=== PATIENT | male | born 1950 | race Caucasian/White ===

== ENCOUNTER 2017-10-14 11:16 | Day surgery (SDC) | payer MEDICARE, OTHER ==
[~2017-10-14] VITALS: Ht 188 cm; Wt 120.2 kg
[2017-10-14] MEDS ORDERED: IOHEXOL 350 MG/ML 100 ML BTL (for Cath Lab) OTHER ONE (11:17)
[2017-10-14 11:57] VITALS: BP 142/78; PULSE 64; RESP 18; TEMP 98.1; O2SAT 96
[2017-10-14] MEDS ORDERED: SODIUM BICARBONATE 100 MEQ in D5W 1000 ML IV SCH (12:00)
[2017-10-14] MEDS ORDERED: SODIUM CHLORIDE 0.9% FLUSH 10 ML FLUSH IV FLUSH PRN ×2 (12:00)
[2017-10-14] MEDS ORDERED: MULT-65 PO (12:03)
[2017-10-14] MEDS ORDERED: FINA5TAB2 PO (12:03)
[2017-10-14] MEDS ORDERED: LISI10TA3 PO (12:03)
[2017-10-14] MEDS ORDERED: PLAV75TA29 PO (12:03)
[2017-10-14] MEDS ORDERED: HYDR25TA5 PO (12:03)
[2017-10-14] MEDS ORDERED: CIAL5TAB PO (12:03)
[2017-10-14] MEDS ORDERED: ROSU5 PO (12:03)
[2017-10-14] MEDS ORDERED: ECASA81 PO (12:03)
[2017-10-14] MEDS ORDERED: TAMS5CAP PO (12:03)
[2017-10-14 12:10] LABS: AUTOMATED NEUTROPHIL # 4.8 TH/MM3 (1.8-7.7); BASOPHIL % 0.5 % (0.0-2.0); EOSINOPHIL # 0.3 TH/MM3 (0-0.4); HEMATOCRIT 40.9 % (39.0-51.0); LYMPH % 25.1 % (9.0-44.0); LYMPHOCYTE # 1.9 TH/MM3 (1.0-4.8); MEAN CELL VOLUME 87.9 FL (80.0-100.0); MEAN CORPUSCULAR HEMOGLOBIN 31.3 PG (27.0-34.0); MEAN CORPUSCULAR HGB CONC 35.7 % (32.0-36.0); MONO % 8.1 % (0.0-8.0); NEUT % 62.3 % (16.0-70.0); PLATELET COUNT 144 TH/MM3 (150-450); RED BLOOD COUNT 4.66 MIL/MM3 (4.50-5.90); RED CELL DISTRIBUTION WIDTH 13.9 % (11.6-17.2); WHITE BLOOD COUNT 7.7 TH/MM3 (4.0-11.0)
[2017-10-14 12:13] LABS: HEMO FLAGS AUTO DIFF
[2017-10-14 12:23] LABS: POTASSIUM 3.9 MEQ/L (3.5-5.1)
[2017-10-14 12:39] LABS: SCAN/DIFF AUTO DIFF CONFIRMED
--- NOTE | 2017-10-14 14:10 | PD.VS.PN ---
Pre-operative Note Pre-operative diagnosis: L LE claudication PAD Planned procedure: Aortogram w/ L LE angiogram possible endovascular intervention Interval History: Pt has been feeling well, no F/C or other changes in health since I saw him. To OR Labs: Laboratory Results Test 10/14/17 11:45 Anion Gap 6 MEQ/L (5-15) Blood Urea Nitrogen 20 MG/DL (7-18) Creatinine 1.09 MG/DL (0.60-1.30) Random Glucose 125 MG/DL (74-106) Calcium Level 9.4 MG/DL (8.5-10.1) Sodium Level 140 MEQ/L (136-145) Potassium Level 3.9 MEQ/L (3.5-5.1) Chloride Level 105 MEQ/L (98-107) Carbon Dioxide Level 29.0 MEQ/L (21.0-32.0) Hematocrit 40.9 % (39.0-51.0) Hemoglobin 14.6 GM/DL (13.0-17.0) Mean Corpuscular Hemoglobin 31.3 PG (27.0-34.0) Mean Corpuscular Hemoglobin Concent 35.7 % (32.0-36.0) Mean Corpuscular Volume 87.9 FL (80.0-100.0) Mean Platelet Volume 8.0 FL (7.0-11.0) Platelet Count 144 TH/MM3 (150-450) Red Blood Count 4.66 MIL/MM3 (4.50-5.90) Red Cell Distribution Width 13.9 % (11.6-17.2) White Blood Count 7.7 TH/MM3 (4.0-11.0) Blood: none needed Imaging: will make in OR Orders: NPO Post-operative destination: DOCU Operative site marked: Yes Consent: Informed consent has been obtained from Jairo Santos. I have explained the procedure in detail and discussed the risks, benefits, and potential complications. All questions have been answered. Augustine Grove MD Oct 14, 2017 14:10
[2017-10-14] MEDS ORDERED: HEPARIN-NS/PF INJ 1,000 ML ONE (14:20)
[2017-10-14] MEDS ORDERED: MIDAZOLAM HCL 5 MG/5 ML VIAL ONE (14:22)
[2017-10-14] MEDS ORDERED: MORPHINE SULFATE 4 MG/ML INJ IV PUSH PRN (14:45)
--- NOTE | 2017-10-14 14:47 | HHI.PR ---
cc: Augustine Grove MD Immediate Post Op Note Procedure Date: Oct 14, 2017 Pre Op Diagnosis: L LE claudication, prior distal bypass Post Op Diagnosis: L LE claudication, prior distal bypass Surgeon: Augustine Grove Sheep And Wheat Farmer(s): none Procedure: Aortogram w/ L LE angiogram Findings: SFA and popliteal occlusion SFA stents occluded prior bypass occluded Additional Information: PT/peroneal runoff Complications: none Specimen(s) removed: none Estimated blood loss: 10mL Anesthesia: MAC Drains: None Patient to: Other (DOCU) Patient Condition: Good Date/Time of Procedure: SEE SURGICAL CARE RECORD Augustine Grove MD Oct 14, 2017 14:47
--- NOTE | 2017-10-14 14:56 | CATHPROC ---
[employer] HIS Report Study Information Study Number Admission Scheduled Start Study Start [id number] Oct 14 2017 11:16AM 10/14/2017 Oct 14 2017 2:03PM [place] Service Cath Endovascular Study Admit Source Facility Department Other [facility] - Draw Hand Physician and Clinical Staff Initial MD Grove, Augustine Young RN, Carlos Recorder Vincenzo Sethi,RT(R) ScrRefugio Alan,RT(R) Procedures Performed Procedure Location (Site) Vessel Name Abdominal Angiogram Abd Aorta (A3) Aorta Wire insertion Fem Art (right) Femoral Art Equipment Time Senior Sales Manager Description Size Mfg Part Number Used/Scraped [id number] 14:24 ANGIO-DYNAMICS OMNI FLUSH 65CM CATHETER FR 4 Used *[id number] 14:34 ANGIO-DYNAMICS OMNI FLUSH 65CM CATHETER FR 4 Used *[id number] INTRODUCER SET, 14:24 [employer] FR 5 [id number] *[id number] Used MICROPUNCTURE, STIFFENED [id number] 14:24 Trudev INDUSTRIES PACK, CCL CUSTOM * Used *[id number] 14:24 [email or web address] MEDICAL PRESSURE TUBING 48" 48" [id number] Used [id number] 14:24 NAMIC TUBING, HIGH PRESSURE 20" 20" Used *[id number] 14:24 NYCOMED OMNIPAQUE, 300 MG, 150ML 150ML [id number] Used 14:24 NYCOMED OMNIPAQUE, 300 MG, 50ML 50ML [id number] Used [id number] 14:24 REECE MEDICAL BLANKET,WARM AIR CCL * Used *[id number] 14:24 TERUMO MEDICAL SHEATH, FR4 TERUMO (10CM) FR 4 Used *[id number] WIRE, ANGLED GLIDE .035 [id number] 14:24 TERUMO MEDICAL/SUSIE 260CM Used 260CM *[id number] History: Allergies Allergy Reaction No Known Allergies Labs Hgb (g/dl) Hct (%) RBC (MIL/MM3) WBC (l/cumm) Platelets (thousands) 11.60-17.00 35.00-51.00 4.00-5.90 4.00-11.00 150.00-450.00 14.6 40.9 4.6 7.7 144 Glucose (mg/dl) BUN (mg/dl) Creatinine (mg/dl) BUN:Creatinine (1:x) 74.00-106.00 7.00-18.00 0.50-1.30 10.00-20.00 125 20 1.0 20 Na (meq/l) K (meq/l) Cl (meq/l) CO2 (mmol/L) 136.00-145.00 3.50-5.10 98.00-107.00 21.00-32.00 140 3.9 105 29 CPK-MB (ng/ML) 0.50-3.60 Not Drawn Medication Medication Total Dose (Bolus/Oral) Medication Total Dosage/Unit 1% XYLOCAINE 20 mL FENTANYL 50 mcg VERSED 2 mg Medications (Bolus/Oral) Medication Time Given Dosage/Unit Administered By Reason FENTANYL 10/14/2017 2:27:12 PM 50 mcg Carlos Young RN Patient arrived on 50 mcg FENTANYL given by Carlos Young RN via Peripheral IV. Ordered by [place] Grove. VERSED 10/14/2017 2:28:01 PM 2 mg Carlos Young RN Patient arrived on 2 mg VERSED given by Carlos Young RN via Peripheral IV. Ordered by Augustine Grove. 1% XYLOCAINE 10/14/2017 2:30:26 PM 20 mL Augustine Grove Patient arrived on 20 mL 1% XYLOCAINE given by Augustine Grove in Right Groin via Subcutaneous. Ordere d by Augustine Grove. Medication (Drip) Medication Time Given Dosage/Unit Concentration/Unit Diluent (ml) Solution IV Solutions 10/14/2017 2:19:31 PM 0 mL (IV) 500 NaCl .9 Patient arrived on IV Solutions given by Augustine Grove in Left Antecubital via Peripheral IV. Pump/D rip Flow = 20 ml/hr using NaCl .9. Ordered by Augustine Grove. Final Case Assessment Cardiovascular HR Rhythm NIBP Chest Pain 60 sr 110/69 0 Edema Present Skin color Skin None Normal Warm Dry Circulatory - Right Pulses Femoral 2 Scale (0,1,2,3,4,d) Circulatory - Left Pulses Femoral 2 Scale (0,1,2,3,4,d) Neurological State Oriented to time-place- Alert Moves all extremities person Respiration - General Respiration Rate SpO2 (%) O2 (lpm) (B/min) 18 98 0 Chronological Log Time Study Chronological Log 14:10:57 Patient arrived via Bed. 14:10:58 Patient Name, D.O.B, / Armband Verified By R.N. 14:10:59 Consent signed by the physician and the patient and verified by the Draw Hand staff. 14:11:00 Pre-op and post- op instructions given; patient acknowledges understanding of instructions. 14:11:02 Verbal Stimulation=2 Physical Stimulation=2 Airway=2 Respiration=2 TOTAL=8. (0=absent, 1=li mited, 2=present) 14:11:13 Presedation assessment performed by Draw Hand RN. 14:11:16 Patient has been NPO for More than 6Hrs. 14:11:21 Skin Breakdown-none present per patient. 14:18:16 A # 20 IV was noted in the Antecubital (left). Grade = 0 14:19:14 Reference ECG taken Vitals capture started with the following parameters, Patient=Adult, Interval=5 min, Initial Pr ppskoo=601 mmHg, 14:19:16 Deflation Rate=5 mmHg, Cuff placed on Right Arm Patient arrived on IV Solutions given by Augustine Grove in Left Antecubital via Peripheral IV. Pump/Drip Flow = 20 ml/hr 14:19:31 using NaCl .9. Ordered by Augustine Grove. 14:19:49 History and physical on the chart or being dictated. 14:20:27 HR=59 bpm, WKRQ=727/82 mmhg, SpO2=99.0 %, Resp=14 B/min, Mar=2 14:22:42 Bilateral groins prepped with 2% chlorhexidine, and draped after a 3 minute waiting time. 14:25:31 HR=56 bpm, NIRD=374/72 mmhg, VtQ4=571.0 %, Resp=15 B/min, Mar=2 Time Out. Correct patient, correct procedure, correct physician, power injector loaded with con trast with surgical team 14:26:13 present. Time Out Concurred by MD and individual staff in procedure. Loaded by Carlos Young rn. verified by Refugio Arevalo. 14:27:12 Patient arrived on 50 mcg FENTANYL given by Carlos Young RN via Peripheral IV. Ordered by Augustine Moscoso. 14:27:54 Case Start 14:27:56 Verbal Stimulation=2 Physical Stimulation=2 Airway=2 Respiration=2 TOTAL=8. (0=absent, 1=li mited, 2=present) 14:28:01 Patient arrived on 2 mg VERSED given by Carlos Young RN via Peripheral IV. Ordered by Augustine Nunez. 14:29:57 HR=64 bpm, IJSC=790/64 mmhg, SpO2=98.0 %, Resp=12 B/min, Mar=2 Patient arrived on 20 mL 1% XYLOCAINE given by Augustine Grove in Right Groin via Subcutaneous. Ordered by [place], 14:30:26 Augustine. 14:32:38 Access site was Right Femoral Artery. A INTRODUCER SET, MICROPUNCTURE, STIFFENED FR 5 was advanced into the Fem Art (right) using the 14:32:43 Percutaneous technique. A SHEATH, FR4 TERUMO (10CM) FR 4 was exchanged in the Fem Art (right). This was necessary in or ilsa to 14:33:14 accomodate a larger catheter. A OMNI FLUSH 65CM CATHETER FR 4 was advanced over a wire. OMNIPAQUE, 300 MG, 50ML 50ML was used for 14:33:44 injections. 14:34:05 Through a OMNI FLUSH 65CM CATHETER FR 4, The Abdominal Aorta was injected with 10 cc's of c ontrast. 14:34:56 HR=60 bpm, GONE=028/64 mmhg, SpO2=97.0 %, Resp=12 B/min, Mar=2 14:36:22 Through a OMNI FLUSH 65CM CATHETER FR 4, The Abdominal Aorta was injected with 10 cc's of c ontrast. 14:37:10 A WIRE, ANGLED GLIDE .035 260CM 260CM was inserted via Fem Art (right). 14:37:57 Wire removed 14:38:06 Through a OMNI FLUSH 65CM CATHETER FR 4, The Femoral Run-off was injected with 4 cc's per s econd. 14:39:22 Through a OMNI FLUSH 65CM CATHETER FR 4, The Femoral Run-off was injected with 4 cc's per s econd. 14:39:57 HR=61 bpm, HNZD=604/58 mmhg, SpO2=97.0 %, Resp=12 B/min, Mar=2 14:40:36 Through a OMNI FLUSH 65CM CATHETER FR 4, The Femoral Run-off was injected with 4 cc's per s econd. 14:41:00 Through a OMNI FLUSH 65CM CATHETER FR 4, The Femoral Run-off was injected with 4 cc's per s econd. 14:42:27 Catheter was removed 14:44:56 HR=58 bpm, HDXA=168/69 mmhg, SpO2=98.0 %, Resp=12 B/min, Mar=2 Assessment: Final Case, HR=60 BPM, Rhythm=sr, UDDY=429/69 mmhg, Chest Pain=0, Edema=None, Color =Normal, Skin = Warm, Dry Right Pulses: Femoral=2 14:45:15 Left Pulses: Femoral=2 Neurological: State=Alert, Ox3, CARDOZA Respiration: Resp=18 B/min, SpO2=98 %, O2=0 lpm 14:45:45 Catheter(s) removed without difficulty 14:45:48 Sheath(s) left in place, will be removed in Holding Area 14:45:50 Case End 14:45:53 Sterile dressing applied to site 14:45:54 No case complications noted. 14:45:56 Cine recording checked. 14:45:58 Bedside Report will be given. 14:46:03 Contrast Scanned 14:49:54 Vitals capture stopped. 14:50:26 Patient moved to carrier clinic End Study - Contrast Media Used In Study Contrast Total Opened (mL) Total Used (mL) Total Wasted (mL) Omnipaque 70 70 0 End Study - Maximum Contrast Load Max Contrast Load (mL) 600.9 End Study - Radiation Exposure Fluoro Time (minutes) 2.3 End Study - Patient Disposition Complications Transferred To Telemetry Bed
--- NOTE | 2017-10-15 05:53 | MP ---
cc: [facility] DATE OF SURGERY 10/14/2017 PREOPERATIVE DIAGNOSIS Left lower exam claudication, peripheral arterial occlusive disease, failed distal bypass. POSTOPERATIVE DIAGNOSIS Left lower exam claudication, peripheral arterial occlusive disease, failed distal bypass. PROCEDURE Aortogram with left lower extremity angiogram. ATTENDING SURGEON [place] MD ANESTHESIA Local with sedation. INDICATIONS Mr. Santos is a 67-year-old gentleman with previous left lower extremity bypass and endovascular intervention all done elsewhere. He has short distance claudication and was taken to the operating room for angiographic evaluation and potential treatment. There is no prior catheter-based imaging available for my review. DESCRIPTION OF PROCEDURE Informed consent was obtained from the patient. He was taken to the operating room and placed supine on the operating room table. An appropriate time-out was taken to ensure the patient's identity, the operative site and the planned procedure. The administration of antibiotics was not necessary as this is a clean procedure without the planned implantation of any foreign object. Everyone in the room agreed with the time-out and we proceeded. His bilateral groins were prepped and draped and the right groin was anesthetized with 1% lidocaine. A 21-gauge micropuncture needle was used to access the right common femoral artery. This was exchanged using Seldinger technique for a micropuncture sheath through which a 0.035 Glidewire was introduced. The micropuncture sheath was exchanged for a 4-Occitan sheath. A DCF catheter was placed over the wire into the sheath and aortogram and pelvic arteriograms obtained. The Glidewire was re-advanced down to the left common femoral artery and the VCF catheter was advanced over this and the left lower extremity arteriogram was obtained. The wire, catheter and sheath were removed and pressure used to obtain hemostasis. There were no complications. I was present and scrubbed and performed the entire procedure. INTERPRETATION OF IMAGES The patient has patent infrarenal aorta, common iliac arteries and external iliac arteries bilaterally. None of these have any hemodynamically significant stenoses. The left common femoral artery is patent. The profunda is patent. The [place] SFA has about a 1-cm origin and then it occludes at the level of the previously placed stents. The previous bypass is occluded. The entire SFA and popliteal artery is occluded and the below-knee popliteal artery reconstitutes the paolo-geniculate profunda-based collaterals. There is two-vessel runoff to the foot. MD BEN Roberson/KAY /6:22 PM /5:36 AM
== END 2017-10-14 19:05 | disposition home or self-care (01) ==
LOC: HCAT 11:16 → HDIC 11:17 → HCAT 19:05
PROVIDERS: ATTEND Surgery
DX: I70.212 Atherosclerosis of native arteries of extremities with intermittent claudication, left leg (principal); I77.1 Stricture of artery; I10 Essential (primary) hypertension
CPT/HCPCS: 36246; 75710; 80048; 85025; 99152; 99153; C1769; C1887; C1893; J1644; J2250; J3010; Q9967

== ENCOUNTER 2018-10-30 06:47 | Observation (INO) ==
[2018-10-30 07:38] LABS: Baso % (Auto) 0.6 % (0.0-2.0); Eos # (Auto) 0.2 th/mm3 (0.0-0.4); Eos % (Auto) 3.5 % (0.0-4.0); Hematocrit 38.2 % (39.0-51.0); Hemoglobin 13.2 gm/dL (13.0-17.0); Lymph # (Auto) 1.4 th/mm3 (1.0-4.8); Mean Corpuscular HGB Conc 34.5 % (32.0-36.0); Mean Corpuscular Hemoglobin 30.8 pg (27.0-34.0); Mean Corpuscular Volume 89.2 fL (80.0-100.0); Mean Platelet Volume 8.1 fL (7.0-11.0); Mono # (Auto) 0.5 th/mm3 (0.0-0.9); Neut # (Auto) 3.6 th/mm3 (1.8-7.7); Neut % (Auto) 62.9 % (16.0-70.0); Platelet Count 134 th/mm3 (150-450); Red Blood Count 4.29 mil/mm3 (4.50-5.90); Red Cell Distribution Width 14.7 % (11.6-17.2); White Blood Count 5.7 th/mm3 (4.0-11.0)
[2018-10-30 07:46] LABS: Activated Partial Thrombo Time 33.6 sec (23.4-31.7); INR 1.2 Ratio
--- NOTE | 2018-10-30 07:52 | ED ---
HPI General Chief complaint: GI Bleed Stated complaint: Medical Time Seen by Provider: 10/30/18 07:02 History of Present Illness HPI Narrative: This is a 68-year-old gentleman with history of peripheral vascular disease, hypertension, dyslipidemia, presents today with complaints of rectal bleeding since yesterday. Patient states he had a bloody bowel movement yesterday afternoon. He states that at that time it was bright red blood. He states that later that evening, he felt the urge to have a bowel movement had another bowel movement of just pure blood. He had another episode this morning where he noted blood in his shorts. He denies any previous history of rectal bleeding. The patient is on Xarelto for his peripheral vascular disease. He also takes a baby aspirin. There is no reported dizziness. There is no reported weakness. There is no reported palpitations or chest pain. No shortness of breath. No other complaints at the time of my examination. Related Data Home Medications Medication Instructions Recorded Confirmed aspirin 81 mg PO DAILY 10/30/18 10/30/18 finasteride 5 mg PO DAILY 10/30/18 10/30/18 hydrochlorothiazide 25 mg PO DAILY 10/30/18 10/30/18 lisinopril 5 mg PO DAILY 10/30/18 10/30/18 rivaroxaban [Xarelto] 20 mg PO QPM 10/30/18 10/30/18 rosuvastatin 5 mg PO DAILY 10/30/18 10/30/18 tadalafil [Cialis] 5 mg PO DAILY 10/30/18 10/30/18 tamsulosin 0.4 mg PO DAILY 10/30/18 10/30/18 Allergies Allergy/AdvReac Type Severity Reaction Status Date / Time No Known Allergies Allergy Verified 10/30/18 06:50 Review of Systems ROS: all other systems reviewed are negative Constitutional Reports system reviewed and no additional complaints, except as docu Eyes Reports system reviewed and no additional complaints, except as docu ENT Denies bleeding gums and Denies dizziness Cardiovascular Denies chest pain and Denies dyspnea Respiratory Denies dyspnea and Denies dyspnea on exertion Gastrointestinal Denies abdominal pain, Reports hematochezia, Denies coffee ground emesis, Reports excessive flatus, Denies diarrhea, Denies nausea and Denies vomiting Musculoskeletal Reports system reviewed and no additional complaints, except as docu Neurologic Reports system reviewed and no additional complaints, except as docu [facility] Medical History Medical History DVT (deep venous thrombosis) (Acute) Femoral popliteal artery thrombus (Acute) Hypertension (Acute) Sleep apnea with use of continuous positive airway pressure (CPAP) (Acute) Surgical History Surgical History H/O hernia repair (Acute) Hx of CABG (Acute) Social History Social History Substance History: No History of Abuse Second Hand Smoke Exposure: No Smoking Status: Former smoker Tobacco Type: Cigarettes How Often Do You Have a Drink Containing Alcohol: Never Recent Travel in [facility] within the Last 8 Weeks: No Recent Out of Country Travel within the Last 8 Weeks: No Immunization History Tetanus Immunization: >5 Years Exam Narrative Exam Narrative: GENERAL: Well developed well-nourished male in no acute distress SKIN: Focused skin assessment warm/dry. HEAD: Atraumatic. Normocephalic. EYES: No pale conjunctiva. No scleral icterus. No injection or drainage. ENT: Mucous membranes pink and moist. NECK: Trachea midline. No JVD. CARDIOVASCULAR: Regular rate and rhythm. No murmur appreciated. RESPIRATORY: No accessory muscle use. Clear to auscultation. Breath sounds equal bilaterally. GASTROINTESTINAL: Abdomen soft, non-tender, nondistended. RECTAL EXAM: No masses or tenderness. Small external hemorrhoid at the 9 o' clock position. No bleeding from the hemorrhoid noted. On digital exam, there was scant pink blood in his vault. It did test positive. MUSCULOSKELETAL: No obvious deformities. No clubbing. No cyanosis. No edema. NEUROLOGICAL: Awake and alert. No obvious cranial nerve deficits. Motor grossly within normal limits. Normal speech. Procedures Hemaprompt Stool Procedural Steps Taken: specimen placed in appropriate test area and controls appropriately positive and negative Hemaprompt Stool Result: positive Course Initial Documented Vital Signs Temperature 98.4 F 10/30/18 06:52 Pulse Rate 72 10/30/18 06:52 Respiratory Rate 16 10/30/18 06:52 Blood Pressure 143/66 H 10/30/18 06:52 Pulse Oximetry 98 10/30/18 06:52 Last Documented Vital Signs Temperature 98.4 F 10/30/18 06:52 Pulse Rate 52 L 10/30/18 09:44 Respiratory Rate 20 10/30/18 09:44 Blood Pressure 126/57 L 10/30/18 09:44 Pulse Oximetry 98 10/30/18 09:44 Medical Decision Making MDM Narrative Medical decision making narrative: 68-year-old gentleman with history of peripheral vascular disease, hypertension, dyslipidemia, who is anticoagulated on Xarelto, presents today with 2-day history of GI bleeding. The patient has an external hemorrhoid at the 9 o'clock position. There is no active bleeding noted. On digital rectal examination he had pink liquid in his rectal vault the tested positive for heme. Given this and his anticoagulation, the patient will be admitted under observation with a GI consult. He was n.p.o. other than coffee this morning. Last ate last night. Case was discussed with Dr. Mcdowell , [facility]ist. Medical Screen Exam Complete: Yes Emergency Medical Condition: Yes Differential Diagnosis Differential Diagnosis: Lower GI bleed versus internal hemorrhoid bleed versus external hemorrhoid bleed Lab Data Result diagrams: 10/30/18 07:20 10/30/18 07:20 Lab Results 10/30/18 10/30/18 10/30/18 Range/Units 07:20 07:20 07:20 WBC 5.7 (4.0-11.0) th/mm3 RBC 4.29 L (4.50-5.90) mil/mm3 Hgb 13.2 (13.0-17.0) gm/dL Hct 38.2 L (39.0-51.0) % MCV 89.2 (80.0-100.0) fL MCH 30.8 (27.0-34.0) pg MCHC 34.5 (32.0-36.0) % RDW 14.7 (11.6-17.2) % Plt Count 134 L (150-450) th/mm3 MPV 8.1 (7.0-11.0) fL Neut % (Auto) 62.9 (16.0-70.0) % Lymph % (Auto) 24.0 (9.0-44.0) % [place] % (Auto) 9.0 H (0.0-8.0) % Eos % (Auto) 3.5 (0.0-4.0) % Baso % (Auto) 0.6 (0.0-2.0) % Neut # (Auto) 3.6 (1.8-7.7) th/mm3 Lymph # (Auto) 1.4 (1.0-4.8) th/mm3 [place] # (Auto) 0.5 (0.0-0.9) th/mm3 Eos # (Auto) 0.2 (0.0-0.4) th/mm3 Baso # (Auto) 0.0 (0.0-0.2) th/mm3 WBC Differential . Differential Comment Auto diff final PT 12.0 H (9.8-11.6) sec INR 1.2 Ratio APTT 33.6 H (23.4-31.7) sec Sodium 141 (136-145) meq/L Potassium 4.0 (3.5-5.1) meq/L Chloride 108 H (98-107) meq/L Carbon Dioxide 27.3 (21.0-32.0) meq/L Anion Gap 6 (5-15) meq/L BUN 17 (7-18) mg/dL Creatinine 1.11 (0.60-1.30) mg/dL Estimated GFR 66 L (>89) mL/min Random Glucose 147 H (74-106) mg/dL Calcium 8.7 (8.5-10.1) mg/dL Total Bilirubin 0.4 (0.2-1.0) mg/dL AST 23 (15-37) U/L ALT 34 (12-78) U/L Alkaline Phosphatase 50 (45-117) U/L Total Protein 7.3 (6.4-8.2) g/dL Albumin 4.0 (3.4-5.0) g/dL Blood Type Blood Type Recheck Antibody Screen 10/30/18 Range/Units 07:50 WBC (4.0-11.0) th/mm3 RBC (4.50-5.90) mil/mm3 Hgb (13.0-17.0) gm/dL Hct (39.0-51.0) % MCV (80.0-100.0) fL MCH (27.0-34.0) pg MCHC (32.0-36.0) % RDW (11.6-17.2) % Plt Count (150-450) th/mm3 MPV (7.0-11.0) fL Neut % (Auto) (16.0-70.0) % Lymph % (Auto) (9.0-44.0) % [place] % (Auto) (0.0-8.0) % Eos % (Auto) (0.0-4.0) % Baso % (Auto) (0.0-2.0) % Neut # (Auto) (1.8-7.7) th/mm3 Lymph # (Auto) (1.0-4.8) th/mm3 [place] # (Auto) (0.0-0.9) th/mm3 Eos # (Auto) (0.0-0.4) th/mm3 Baso # (Auto) (0.0-0.2) th/mm3 WBC Differential Differential Comment PT (9.8-11.6) sec INR Ratio APTT (23.4-31.7) sec Sodium (136-145) meq/L Potassium (3.5-5.1) meq/L Chloride (98-107) meq/L Carbon Dioxide (21.0-32.0) meq/L Anion Gap (5-15) meq/L BUN (7-18) mg/dL Creatinine (0.60-1.30) mg/dL Estimated GFR (>89) mL/min Random Glucose (74-106) mg/dL Calcium (8.5-10.1) mg/dL Total Bilirubin (0.2-1.0) mg/dL AST (15-37) U/L ALT (12-78) U/L Alkaline Phosphatase (45-117) U/L Total Protein (6.4-8.2) g/dL Albumin (3.4-5.0) g/dL Blood Type O Positive Blood Type Recheck Required Antibody Screen Negative Discharge Plan Discharge Disposition Patient Disposition: ED Admit(ED Internal Use Only) Discharge Order Discharge Orders: ED Use Only Admit Order (Routine); Ordered 10/30/18 Ordered By: Mannie Carrasquillo Discharge Details Diagnosis: Lower gastrointestinal hemorrhage, Anticoagulated Physicians Team ED Provider: Mannie Carrasquillo Primary Care Provider: Vincenzo Ridley Attending Provider: Danyelle Mcdowell Other Providers: Shakeel Pablo V Discharge Interventions Interventions: Vital Signs Last Done: 10/30/18 06:52 Status ED Status: Admitted Observation Patient
[2018-10-30 07:53] LABS: Alanine Aminotransferase 34 U/L (12-78); Anion Gap 6 meq/L (5-15); Aspartate Aminotransferase 23 U/L (15-37); Blood Urea Nitrogen 17 mg/dL (7-18); Calcium 8.7 mg/dL (8.5-10.1); Carbon Dioxide 27.3 meq/L (21.0-32.0); Chloride 108 meq/L (98-107); Glomerular Filtration Rate 66 mL/min (>89); Glucose,Random 147 mg/dL (74-106); Sodium 141 meq/L (136-145)
[2018-10-30 07:57] LABS: Alkaline Phosphatase 50 U/L (45-117); Total Protein 7.3 g/dL (6.4-8.2)
--- NOTE | 2018-10-30 09:22 | P.HP ---
History of Present Illness Service: [facility] Primary Care Physician: Vincenzo Ridley MD Chief Complaint: Rectal bleeding History of Present Illness: Patient is a very pleasant 68-year-old male with known history of peripheral vascular disease, hypertension, erectile dysfunction, hyperlipidemia, benign prostatic hypertrophy, history of blood clots-but patient and not sure if it is arterial clots or deep vein thrombosis. Denies any history of CAD, CVA who up until Saturday was on Plavix plus Xarelto. On follow-up with Dr. Grove Saturday was told to discontinue Plavix and added aspirin. He is also followed by Dr. Tejada- cardroom drawing runner-last seen 6 months ago -around June who was the one who placed him on Xarelto-for new onset atrial flutter. Patient came to the emergency room because of rectal bleeding that started 2 days prior to admission. Bright red blood. Patient had history of external hemorrhoids. Patient states that a week prior to admission had one episode of bright red blood per rectum. Assumed it was from hemorrhoids. Painless no abdominal pain. Yesterday had another episode of bloody stools. This a.m. another episode of bright red blood per rectum and patient came to the emergency room and admitted for further evaluation. Per patient usual bowel movement is daily -mild constipation but lately not as bad.. Had a screening colonoscopy done years ago which was reportedly normal. Denies any weight loss no abdominal pain. Denies any reflux symptoms. Review of Systems No fever no chest pain no shortness of breath No reflux symptoms No leg swelling No bleeding tendencies prior to these episodes of hematochezia No leg swelling. [facility] - History History Provided By: Patient - Medical History Medical History: Medical History (Last Updated 10/30/18 @ 08:20 by Linda Christina RN) DVT (deep venous thrombosis) Femoral popliteal artery thrombus Hypertension Sleep apnea with use of continuous positive airway pressure (CPAP) - Surgical History Surgical History: Surgical History (Last Reviewed 10/30/18 @ 07:35 by Linda Christina RN) H/O hernia repair Hx of CABG - Tobacco History Second Hand Smoke Exposure: No Smoking Status: Former smoker Tobacco Type: Cigarettes - Alcohol History How Often Do You Have a Drink Containing Alcohol: Never - Substance Use History Substance History: No History of Abuse - Travel History Recent Travel in the [facility] Within the Last 8 Weeks: No Recent Travel Out of the Country Within the Last 8 Weeks: No - Immunization History Tetanus Immunization: >5 Years Medications and Allergies Active Medications: Active Medications Dextrose/Sodium Chloride (D5w/Normal Saline Inj) 1,000 mls @ 42 mls/hr IV.CONT .[id number] ARTHUR Sodium Chloride (Ns Flush) 2 ml IV.FLUSH PRN PRN PRN Reason: FLUSH AFTER USING IV ACCESS Allergies Allergy/AdvReac Type Severity Reaction Status Date / Time No Known Allergies Allergy Verified 10/30/18 06:50 Home Medications Medication Instructions Recorded Confirmed Type aspirin 81 mg PO DAILY 10/30/18 10/30/18 History finasteride 5 mg PO DAILY 10/30/18 10/30/18 History hydrochlorothiazide 25 mg PO DAILY 10/30/18 10/30/18 History lisinopril 5 mg PO DAILY 10/30/18 10/30/18 History rosuvastatin 5 mg PO DAILY 10/30/18 10/30/18 History tadalafil [Cialis] 5 mg PO DAILY 10/30/18 10/30/18 History tamsulosin 0.4 mg PO DAILY 10/30/18 10/30/18 History Exam Vital signs: Vital Signs 10/30/18 06:52 10/30/18 07:30 Temperature 98.4 F Pulse Rate 72 62 Respiratory Rate 16 Blood Pressure 143/66 H Pulse Oximetry 98 98 Intake & Output 10/29/18 10/30/18 10/30/18 18:59 06:59 18:59 Weight 120.202 kg Other: Date of Last Bowel Movement 10/29/18 Narrative: Vital signs stable heart rate 62 regular Anicteric sclerae neck supple no bruit Chest lungs clear breath sounds no rales no wheezes Regular rhythm Abdomen is soft globular nontender with good bowel sounds Extremities no edema, good peripheral pulses. Rectum-with some external hemorrhoids slightly erythematous, rectal exam was performed by ER physician.+ blood on withdrawal of palpating finger Results - Labs CBC & Chem 7: 10/31/18 10:07 10/30/18 07:20 Labs: Laboratory Results - last 24 hr 10/30/18 10/30/18 10/30/18 07:20 07:20 07:20 WBC 5.7 RBC 4.29 L Hgb 13.2 Hct 38.2 L MCV 89.2 MCH 30.8 MCHC 34.5 RDW 14.7 Plt Count 134 L MPV 8.1 Neut % (Auto) 62.9 Lymph % (Auto) 24.0 [place] % (Auto) 9.0 H Eos % (Auto) 3.5 Baso % (Auto) 0.6 Neut # (Auto) 3.6 Lymph # (Auto) 1.4 [place] # (Auto) 0.5 Eos # (Auto) 0.2 Baso # (Auto) 0.0 WBC Differential . Differential Comment Auto diff final PT 12.0 H INR 1.2 APTT 33.6 H Sodium 141 Potassium 4.0 Chloride 108 H Carbon Dioxide 27.3 Anion Gap 6 BUN 17 Creatinine 1.11 Estimated GFR 66 L Random Glucose 147 H Calcium 8.7 Total Bilirubin 0.4 AST 23 ALT 34 Alkaline Phosphatase 50 Total Protein 7.3 Albumin 4.0 Blood Type Blood Type Recheck Antibody Screen 10/30/18 07:50 WBC RBC Hgb Hct MCV MCH MCHC RDW Plt Count MPV Neut % (Auto) Lymph % (Auto) [place] % (Auto) Eos % (Auto) Baso % (Auto) Neut # (Auto) Lymph # (Auto) [place] # (Auto) Eos # (Auto) Baso # (Auto) WBC Differential Differential Comment PT INR APTT Sodium Potassium Chloride Carbon Dioxide Anion Gap BUN Creatinine Estimated GFR Random Glucose Calcium Total Bilirubin AST ALT Alkaline Phosphatase Total Protein Albumin Blood Type O Positive Blood Type Recheck Required Antibody Screen Negative Caprini VTE Risk Assessment Caprini VTE Risk Assessment: Moderate/High Risk (score >= 2) VTE Pharmacological Exception Reason: Active bleeding Caprini Risk Assessment Model: Point Value = 1 Point Value = 2 Point Value = 3 Point Value = 5 Age 41-60 Minor surgery BMI > 25 kg/m2 Swollen legs Varicose veins or History of unexplained or recurrent spontaneous Oral contraceptives or hormone replacement Sepsis (< 1 month) Serious lung disease, including pneumonia (< 1 month) Abnormal pulmonary function Acute myocardial infarction Congestive heart failure (< 1 month) History of inflammatory bowel disease Medical patient at bed rest Age 61-74 Arthroscopic surgery Major open surgery (> 45 min) Laparoscopic surgery (> 45 min) Malignancy Confined to bed (> 72 hours) Immobilizing plaster cast Central venous access Age >= 75 History of VTE Family history of VTE Factor V Leiden Prothrombin [id number] Lupus anticoagulant Anticardiolipin antibodies Elevated serum homocysteine Heparin-induced thrombocytopenia Other congenital or acquired thrombophilia Stroke (< 1 month) Elective arthroplasty Hip, pelvis, or leg fracture Acute spinal cord injury (< 1 month) Prophylaxis Regimen: Total Risk Factor Score Risk Level Prophylaxis Regimen 0-1 Low Early ambulation 2 Moderate Order ONE of the following: *Sequential Compression Device (SCD) *Heparin 5000 units SQ BID 3-4 Higher Order ONE of the following medications: *Heparin 5000 units SQ TID *Enoxaparin/Lovenox 40 mg SQ daily (WT < 150 kg, CrCl > 30 mL/min) *Enoxaparin/Lovenox 30 mg SQ daily (WT < 150 kg, CrCl > 10-29 mL/min) *Enoxaparin/Lovenox 30 mg SQ BID (WT < 150 kg, CrCl > 30 mL/min) AND/OR *Sequential Compression Device (SCD) 5 or more Highest Order ONE of the following medications: *Heparin 5000 units SQ TID (Preferred with Epidurals) *Enoxaparin/Lovenox 40 mg SQ daily (WT < 150 kg, CrCl > 30 mL/min) *Enoxaparin/Lovenox 30 mg SQ daily (WT < 150 kg, CrCl > 10-29 mL/min) *Enoxaparin/Lovenox 30 mg SQ BID (WT < 150 kg, CrCl > 30 mL/min) AND *Sequential Compression Device (SCD) Assessment and Plan - Plan 68-year-old male presenting with 2 days rectal bleeding, history of peripheral vascular disease status post femoropopliteal bypass procedure in 2008 Lower GI bleed possible hemorrhoidal bleed rule out diverticulosis. -Hemodynamically stable. He denies any recent history of NSAIDs use. He was recently started on aspirin Saturday. - Chronically on Xarelto. Plavix was discontinued Saturday by Vascular surgery - GI consult for scope.- Upper and lower - Recheck CBC in a.m. - Hold Xarelto and ASA - start IV PPI History of peripheral vascular disease status post sounds like a femoropopliteal surgery of the left in 2008. - currently on Xarelto plus aspirin. - Up until Saturday was on Plavix plus Xarelto. Was seen by Dr. Grove then, Plavix was discontinued and placed on aspirin. -We will hold meds for now. -Get a 12-lead EKG. History of hypertension. History of atrial flutter. currently in SR History of hyperlipidemia. - denies history of CAD, CVA - Continue on hydrochlorothiazide 25 mg daily, lisinopril 10 mg daily, rosuvastatin 5 mg daily. History of erectile dysfunction on Cialis 5 mg daily hold for now History of benign prostatic hypertrophy. Continue Flomax 0.4 mg at bedtime. Chemical prophylaxis hold due to GI bleed. Bilateral SCDs.
[2018-10-30] MEDS: Dextrose 5%/NaCl 0.9% Inj 1,000 ML IV.CONT SCH ×2 (09:40→22:08)
[2018-10-30] MEDS: Pantoprazole Inj 40 MG Vial IV.PUSH SCH (10:05)
--- NOTE | 2018-10-30 11:34 | P.CONGI ---
History of Present Illness Consult date: 10/30/18 Consult reason: Bright red blood per rectum for 2 days Chief complaint: GI Bleed, anticoagulated History of Present Illness: This patient is a 68-year-old male with past medical history significant for DVT, femoral popliteal artery thrombus, hypertension and sleep apnea. Surgical history is significant for bilateral inguinal hernia repair and CABG. Patient presented to [facility] emergency room with report of bright red blood per rectum for 2 days. Upon consultation, patient endorses that he had an episode of bright red blood per rectum 1 week ago and then again last evening. Patient describes blood as bright red denies any blood in stool, states stool is brown. Patient denies black tarry stools. Patient does endorse history of large hemorrhoids that to his knowledge have never been bleeding hemorrhoids. Of note, patient stopped taking Plavix 1 week ago. He states that he has been on Plavix for many years. Patient started taking Xarelto 1 tablet p.o. daily 6 months ago. He endorses that his last dose of Xarelto was last evening at 9 PM. He also states that he takes aspirin 81 mg p.o. daily. Patient denies abdominal pain nausea or vomiting. He denies any heartburn or difficulty swallowing. Patient denies any unintentional weight loss. He endorses familial history-uncle had stomach cancer. Patient states last colonoscopy was done in 2011 where to his recollection benign polyps were discovered. Patient denies any use of tobacco or alcohol products. States he stopped smoking in 2004. Patient endorses daily bowel movements with some occasional constipation for which he uses Dulcolax/diet modification. Our service has been consulted to evaluate patient for bright red blood per rectum. Review of Systems All other systems reviewed negative except as stated in HPI PMFSH - History History Provided By: Patient - Medical History Medical History: Medical History (Last Updated 10/30/18 @ 08:20 by Linda Christina RN) DVT (deep venous thrombosis) Femoral popliteal artery thrombus Hypertension Sleep apnea with use of continuous positive airway pressure (CPAP) - Surgical History Surgical History: Surgical History (Last Reviewed 10/30/18 @ 07:35 by Linda Christina RN) H/O hernia repair Hx of CABG - Tobacco History Second Hand Smoke Exposure: No Smoking Status: Former smoker Tobacco Type: Cigarettes - Alcohol History How Often Do You Have a Drink Containing Alcohol: Never - Substance Use History Substance History: No History of Abuse - Travel History Recent Travel in the [place] Within the Last 8 Weeks: No Recent Travel Out of the Country Within the Last 8 Weeks: No - Immunization History Tetanus Immunization: >5 Years Medications and Allergies Active Medications: Active Medications Atorvastatin Calcium (Lipitor) 10 mg PO DAILY [facility] Finasteride (Proscar) 5 mg PO DAILY [facility] Hydrochlorothiazide (Hydrodiuril) 25 mg PO DAILY [facility] Dextrose/Sodium Chloride (D5w/Normal Saline Inj) 1,000 mls @ 42 mls/hr IV.CONT .[id number] [facility] Last Admin: 10/30/18 09:40 Dose: 42 mls/hr Lisinopril (Prinivil) 5 mg PO DAILY [facility] Pantoprazole Sodium (Protonix Inj) 40 mg IV.PUSH Q24H [facility] Last Admin: 10/30/18 10:05 Dose: 40 mg Sodium Chloride (Ns Flush) 2 ml IV.FLUSH PRN PRN PRN Reason: FLUSH AFTER USING IV ACCESS Tamsulosin HCl (Flomax) 0.4 mg PO DAILY [facility] Allergies Allergy/AdvReac Type Severity Reaction Status Date / Time No Known Allergies Allergy Verified 10/30/18 06:50 Home Medications Medication Instructions Recorded Confirmed Type aspirin 81 mg PO DAILY 10/30/18 10/30/18 History finasteride 5 mg PO DAILY 10/30/18 10/30/18 History hydrochlorothiazide 25 mg PO DAILY 10/30/18 10/30/18 History lisinopril 5 mg PO DAILY 10/30/18 10/30/18 History rivaroxaban [Xarelto] 20 mg PO QPM 10/30/18 10/30/18 History rosuvastatin 5 mg PO DAILY 10/30/18 10/30/18 History tadalafil [Cialis] 5 mg PO DAILY 10/30/18 10/30/18 History tamsulosin 0.4 mg PO DAILY 10/30/18 10/30/18 History Exam Vital signs: Vital Signs 10/30/18 06:52 10/30/18 07:30 10/30/18 09:44 Temperature 98.4 F Pulse Rate 72 62 52 L Respiratory Rate 16 20 Blood Pressure 143/66 H 126/57 L Pulse Oximetry 98 98 98 Intake & Output 10/29/18 10/30/18 10/30/18 18:59 06:59 18:59 Weight 120.202 kg Other: Date of Last Bowel Movement 10/29/18 - Constitutional no acute distress, cooperative - Routine HEENT Exam Head: Present: normocephalic - Routine Respiratory Exam Present: CTA bilaterally. Absent: accessory muscle use - Routine Cardiovascular Exam Present: RRR - Routine Abdominal Exam Present: soft, normoactive bowel sounds. Absent: tenderness, distended, guarding, firm - Routine Extremities Exam Absent: edema - Routine Skin Exam Present: dry, warm, normal turgor. Absent: pallor - Routine Neurological Exam Present: alert - Routine Psychiatric Exam Present: normal affect, cooperative Results - Labs CBC & Chem 7: 10/30/18 07:20 10/30/18 07:20 Labs: Laboratory Results - last 24 hr 10/30/18 10/30/18 10/30/18 07:20 07:20 07:20 WBC 5.7 RBC 4.29 L Hgb 13.2 Hct 38.2 L MCV 89.2 MCH 30.8 MCHC 34.5 RDW 14.7 Plt Count 134 L MPV 8.1 Neut % (Auto) 62.9 Lymph % (Auto) 24.0 [place] % (Auto) 9.0 H Eos % (Auto) 3.5 Baso % (Auto) 0.6 Neut # (Auto) 3.6 Lymph # (Auto) 1.4 [place] # (Auto) 0.5 Eos # (Auto) 0.2 Baso # (Auto) 0.0 WBC Differential . Differential Comment Auto diff final PT 12.0 H INR 1.2 APTT 33.6 H Sodium 141 Potassium 4.0 Chloride 108 H Carbon Dioxide 27.3 Anion Gap 6 BUN 17 Creatinine 1.11 Estimated GFR 66 L Random Glucose 147 H Calcium 8.7 Total Bilirubin 0.4 AST 23 ALT 34 Alkaline Phosphatase 50 Total Protein 7.3 Albumin 4.0 Blood Type Blood Type Recheck Antibody Screen 10/30/18 07:50 WBC RBC Hgb Hct MCV MCH MCHC RDW Plt Count MPV Neut % (Auto) Lymph % (Auto) [place] % (Auto) Eos % (Auto) Baso % (Auto) Neut # (Auto) Lymph # (Auto) [place] # (Auto) Eos # (Auto) Baso # (Auto) WBC Differential Differential Comment PT INR APTT Sodium Potassium Chloride Carbon Dioxide Anion Gap BUN Creatinine Estimated GFR Random Glucose Calcium Total Bilirubin AST ALT Alkaline Phosphatase Total Protein Albumin Blood Type O Positive Blood Type Recheck Required Antibody Screen Negative Assessment and Plan (1) Bright red blood per rectum Status: Acute Code(s): K62.5 - Hemorrhage of anus and rectum - Plan This patient is a 68-year-old male with past medical history significant for DVT , femoral popliteal artery thrombus, hypertension and sleep apnea. Surgical history is significant for bilateral inguinal hernia repair and CABG. Patient presented to [facility] emergency room with report of bright red blood per rectum for 2 days. Upon consultation, patient endorses that he had an episode of bright red blood per rectum 1 week ago and then again last evening. Patient describes blood as bright red denies any blood in stool, states stool is brown. Patient denies black tarry stools. Patient does endorse history of large hemorrhoids that to his knowledge have never been bleeding hemorrhoids. Of note, patient stopped taking Plavix 1 week ago. He states that he has been on Plavix for many years. Patient started taking Xarelto 1 tablet p.o. daily 6 months ago. He endorses that his last dose of Xarelto was last evening at 9 PM. He also states that he takes aspirin 81 mg p.o. daily. Patient denies abdominal pain nausea or vomiting. He denies any heartburn or difficulty swallowing. Patient denies any unintentional weight loss. He endorses familial history-uncle had stomach cancer. Patient states last colonoscopy was done in 2011 where to his recollection benign polyps were discovered. Patient denies any use of tobacco or alcohol products. States he stopped smoking in 2004. Patient endorses daily bowel movements with some occasional constipation for which he uses Dulcolax/diet modification. Our service has been consulted to evaluate patient for bright red blood per rectum. Bright red blood per rectum Patient endorses history of femoral popliteal artery thrombus as well as DVTs. Reports history of hemorrhoids. Patient endorses bright red blood per rectum 1 week ago and then again last evening. Started taking Xarelto 6 months ago. Last dose last evening at 9 PM along with aspirin 81 mg p.o. Stopped Plavix 1 week ago. -WBC 5.7 RBC 4.29 hemoglobin 13.2 hematocrit 38.2 platelet count 134 INR 1.2 -Total bilirubin 0.4 AST 23 ALT 34 alk phos 50 Plan -Clear liquid diet -Monitor for bleeding -Monitor hemoglobin and hematocrit -Hold Xarelto -Continue PPI -Colonoscopy on 11/01/2018 -Avoid NSAIDs -Supportive care -Further recommendations to follow This patient has been seen by myself and Dr. Pablo and this note is written on his behalf - Attending Attestation Dr. Pablo
[2018-10-31] MEDS: Lisinopril 5 MG Tablet PO SCH (09:48)
[2018-10-31] MEDS: hydroCHLOROthiazide 25 MG Tablet PO SCH (09:48)
[2018-10-31] MEDS: Finasteride 5 MG Tablet PO SCH (09:48)
[2018-10-31] MEDS: Pantoprazole Inj 40 MG Vial IV.PUSH SCH (09:49)
[2018-10-31] MEDS: Dextrose 5%/NaCl 0.9% Inj 1,000 ML IV.CONT SCH (09:49)
[2018-10-31 10:20] LABS: Hematocrit 36.9 % (39.0-51.0); Hemoglobin 12.7 gm/dL (13.0-17.0); Mean Corpuscular HGB Conc 34.4 % (32.0-36.0); Mean Corpuscular Hemoglobin 30.7 pg (27.0-34.0); Mean Corpuscular Volume 89.3 fL (80.0-100.0); Mean Platelet Volume 7.8 fL (7.0-11.0); Platelet Count 131 th/mm3 (150-450); Red Blood Count 4.13 mil/mm3 (4.50-5.90); Red Cell Distribution Width 14.5 % (11.6-17.2); White Blood Count 5.7 th/mm3 (4.0-11.0)
--- NOTE | 2018-10-31 11:55 | P.PNGI ---
Subjective Interval history: Patient laying supine in bed Denies any BM overnight over this a.m. No reported bleeding <Angeles,Mary - Last Filed: 10/31/18 11:53> Physical Exam Vital signs: Vital Signs 10/30/18 15:59 10/30/18 19:44 10/31/18 00:00 Temperature 97.9 F 97.7 F 97.7 F Pulse Rate 58 L 62 64 Respiratory Rate 16 18 20 Blood Pressure 114/59 L 137/65 157/71 H Pulse Oximetry 96 98 96 10/31/18 03:50 10/31/18 08:00 Temperature 98.3 F 97.8 F Pulse Rate 66 60 Respiratory Rate 20 16 Blood Pressure 140/68 146/66 H Pulse Oximetry 96 96 Intake & Output 10/30/18 10/31/18 10/31/18 18:59 06:59 18:59 Intake Total 1760 / 1760 Output Total 1600 / 1600 Balance 160 / 160 Weight 73.575 kg Intake: IV 1000 / 1000 D5W/Normal Saline Inj 1,000 ML 1000 / 1000 @ 42 mls/hr IV.CONT .[id number] [facility] Rx#:[id number] Oral 760 / 760 Output: Urine 1600 / 1600 Other: # Voids 3 Date of Last Bowel Movement 10/29/18 10/30/18 # Bowel Movements 1 Weight On Admission 73.575 kg - Constitutional no acute distress - Routine HEENT Exam Head: Present: normocephalic - Routine Respiratory Exam Present: CTA bilaterally. Absent: accessory muscle use - Routine Cardiovascular Exam Present: RRR - Routine Abdominal Exam Present: soft, normoactive bowel sounds. Absent: tenderness, guarding, firm - Routine Skin Exam Present: dry, warm. Absent: pallor - Routine Neurological Exam Present: alert <Angeles,Mary - Last Filed: 10/31/18 11:53> Vital signs: Vital Signs 10/30/18 15:59 10/30/18 19:44 10/31/18 00:00 Temperature 97.9 F 97.7 F 97.7 F Pulse Rate 58 L 62 64 Respiratory Rate 16 18 20 Blood Pressure 114/59 L 137/65 157/71 H Pulse Oximetry 96 98 96 10/31/18 03:50 10/31/18 08:00 10/31/18 12:00 Temperature 98.3 F 97.8 F 97.8 F Pulse Rate 66 60 61 Respiratory Rate 20 16 16 Blood Pressure 140/68 146/66 H 146/65 H Pulse Oximetry 96 96 96 Intake & Output 10/30/18 10/31/18 10/31/18 18:59 06:59 18:59 Intake Total 1760 / 1760 Output Total 1600 / 1600 Balance 160 / 160 Weight 73.575 kg Intake: IV 1000 / 1000 D5W/Normal Saline Inj 1,000 ML 1000 / 1000 @ 42 mls/hr IV.CONT .[id number] [facility] Rx#:[id number] Oral 760 / 760 Output: Urine 1600 / 1600 Other: # Voids 3 Date of Last Bowel Movement 10/29/18 10/30/18 10/30/18 # Bowel Movements 1 Weight On Admission 73.575 kg <Edith Phelps - Last Filed: 10/31/18 13:21> Results - Labs CBC & Chem 7: 10/31/18 10:07 10/30/18 07:20 Laboratory Results - last 24 hr 10/31/18 10:07 WBC 5.7 RBC 4.13 L Hgb 12.7 L Hct 36.9 L MCV 89.3 MCH 30.7 MCHC 34.4 RDW 14.5 Plt Count 131 L MPV 7.8 <Mary Angeles - Last Filed: 10/31/18 11:53> - Labs CBC & Chem 7: 10/31/18 10:07 10/30/18 07:20 Laboratory Results - last 24 hr 10/31/18 10:07 WBC 5.7 RBC 4.13 L Hgb 12.7 L Hct 36.9 L MCV 89.3 MCH 30.7 MCHC 34.4 RDW 14.5 Plt Count 131 L MPV 7.8 <Edith Phelps - Last Filed: 10/31/18 13:21> Assessment and Plan (1) Bright red blood per rectum Status: Acute Code(s): K62.5 - Hemorrhage of anus and rectum - Plan This patient is a 68-year-old male with past medical history significant for DVT , femoral popliteal artery thrombus, hypertension and sleep apnea. Surgical history is significant for bilateral inguinal hernia repair and CABG. Patient presented to [facility] emergency room with report of bright red blood per rectum for 2 days. Upon consultation, patient endorses that he had an episode of bright red blood per rectum 1 week ago and then again last evening. Patient describes blood as bright red denies any blood in stool, states stool is brown. Patient denies black tarry stools. Patient does endorse history of large hemorrhoids that to his knowledge have never been bleeding hemorrhoids. Of note, patient stopped taking Plavix 1 week ago. He states that he has been on Plavix for many years. Patient started taking Xarelto 1 tablet p.o. daily 6 months ago. He endorses that his last dose of Xarelto was last evening at 9 PM. He also states that he takes aspirin 81 mg p.o. daily. Patient denies abdominal pain nausea or vomiting. He denies any heartburn or difficulty swallowing. Patient denies any unintentional weight loss. He endorses familial history-uncle had stomach cancer. Patient states last colonoscopy was done in 2011 where to his recollection benign polyps were discovered. Patient denies any use of tobacco or alcohol products. States he stopped smoking in 2004. Patient endorses daily bowel movements with some occasional constipation for which he uses Dulcolax/diet modification. Our service has been consulted to evaluate patient for bright red blood per rectum. Bright red blood per rectum Patient endorses history of femoral popliteal artery thrombus as well as DVTs. Reports history of hemorrhoids. Patient endorses bright red blood per rectum 1 week ago and then again last evening. Started taking Xarelto 6 months ago. Last dose last evening at 9 PM along with aspirin 81 mg p.o. Stopped Plavix 1 week ago. -WBC 5.7 RBC 4.29 hemoglobin 13.2 hematocrit 38.2 platelet count 134 INR 1.2 -Total bilirubin 0.4 AST 23 ALT 34 alk phos 50 10/31/2018 Patient denies any BM overnight or this a.m. Denies any noted bleeding Plan colonoscopy for a.m. WBC 5.7 hemoglobin 12.7 hematocrit 36.9 platelet count 131 Plan -Clear liquid diet-n.p.o. after midnight -GoLYTELY prep -Monitor for bleeding -Monitor hemoglobin and hematocrit -Hold Xarelto -Continue PPI -Colonoscopy on 11/01/2018 -Avoid NSAIDs -Supportive care -Further recommendations to follow This patient has been seen by myself and Dr. Mattie and this note is written on his behalf - Attending Attestation Dr. Phelps <Mary Angeles - Last Filed: 10/31/18 11:53> (1) Bright red blood per rectum Status: Acute Code(s): K62.5 - Hemorrhage of anus and rectum - Attending Attestation Discussed the procedure, including risk, benefits and possible complications. Will start bowel prep for tomorrow. <Edith Phelps - Last Filed: 10/31/18 13:21>
--- NOTE | 2018-10-31 14:06 | P.PN ---
Subjective Interval history: no complains tolerating po no reported bleeding, no bowel movement, + flatus no nausea or vomiting, no pain Physical Exam Vital signs: Vital Signs 10/30/18 15:59 10/30/18 19:44 10/31/18 00:00 Temperature 97.9 F 97.7 F 97.7 F Pulse Rate 58 L 62 64 Respiratory Rate 16 18 20 Blood Pressure 114/59 L 137/65 157/71 H Pulse Oximetry 96 98 96 10/31/18 03:50 10/31/18 08:00 10/31/18 12:00 Temperature 98.3 F 97.8 F 97.8 F Pulse Rate 66 60 61 Respiratory Rate 20 16 16 Blood Pressure 140/68 146/66 H 146/65 H Pulse Oximetry 96 96 96 Intake & Output 10/30/18 10/31/18 10/31/18 18:59 06:59 18:59 Intake Total 1760 / 1760 Output Total 1600 / 1600 Balance 160 / 160 Weight 73.575 kg Intake: IV 1000 / 1000 D5W/Normal Saline Inj 1,000 ML 1000 / 1000 @ 42 mls/hr IV.CONT .[id number] [facility] Rx#:[id number] Oral 760 / 760 Output: Urine 1600 / 1600 Other: # Voids 3 Date of Last Bowel Movement 10/29/18 10/30/18 10/30/18 # Bowel Movements 1 Weight On Admission 73.575 kg Narrative: Vital signs stable heart rate 62 regular Anicteric sclerae neck supple no bruit Chest lungs clear breath sounds no rales no wheezes Regular rhythm Abdomen is soft globular nontender with good bowel sounds Extremities no edema, good peripheral pulses. Rectum-with some external hemorrhoids slightly erythematous, rectal exam was performed by ER physician.+ blood on withdrawal of palpating finger Results - Labs CBC & Chem 7: 10/31/18 10:07 10/30/18 07:20 Laboratory Results - last 24 hr 10/31/18 10:07 WBC 5.7 RBC 4.13 L Hgb 12.7 L Hct 36.9 L MCV 89.3 MCH 30.7 MCHC 34.4 RDW 14.5 Plt Count 131 L MPV 7.8 Assessment and Plan - Plan 68-year-old male presenting with 2 days rectal bleeding, history of peripheral vascular disease status post femoropopliteal bypass procedure in 2008 Lower GI bleed possible hemorrhoidal bleed rule out diverticulosis. -Hemodynamically stable. He denies any recent history of NSAIDs use. He was recently started on aspirin Saturday. - Chronically on Xarelto. Plavix was discontinued Saturday by Vascular surgery - GI ff- for scope tomorrow - H and H stable - Hold Xarelto and ASA - IV PPI History of peripheral vascular disease status post sounds like a femoropopliteal surgery of the left in 2008. - currently on Xarelto plus aspirin. - Up until Saturday was on Plavix plus Xarelto. Was seen by Dr. Grove then, Plavix was discontinued and placed on aspirin. -We will hold meds for now. - unremarkable 12-lead EKG. History of hypertension. History of atrial flutter. currently in SR History of hyperlipidemia. - denies history of CAD, CVA - Continue on hydrochlorothiazide 25 mg daily, lisinopril 10 mg daily, rosuvastatin 5 mg daily. History of erectile dysfunction on Cialis 5 mg daily hold for now History of benign prostatic hypertrophy. Continue Flomax 0.4 mg at bedtime. Chemical prophylaxis hold due to GI bleed. Bilateral SCDs.- up and ambulating
[2018-10-31] MEDS ORDERED: PEG 3350/E-Lyte Soln 4000 ML Bottle PO ONE (16:00)
[2018-11-01] MEDS: Finasteride 5 MG Tablet PO SCH (09:13)
[2018-11-01] MEDS: Lisinopril 5 MG Tablet PO SCH (09:13)
[2018-11-01] MEDS: hydroCHLOROthiazide 25 MG Tablet PO SCH (09:13)
[2018-11-01] MEDS: Pantoprazole Inj 40 MG Vial IV.PUSH SCH (09:13)
--- NOTE | 2018-11-01 09:31 | P.PN ---
Subjective Interval history: received prep for colonoscopy- clear liquid stools from prep no BRBR looking forward to colonosocopy this am Physical Exam Vital signs: Vital Signs 10/31/18 12:00 10/31/18 16:00 10/31/18 20:00 Temperature 97.8 F 98.4 F Pulse Rate 61 58 L 65 Respiratory Rate 16 18 18 Blood Pressure 146/65 H 196/87 H 100/58 L Pulse Oximetry 96 98 95 10/31/18 23:50 11/01/18 05:27 11/01/18 07:59 Temperature 98.7 F 97.6 F 97.4 F L Pulse Rate 60 60 54 L Respiratory Rate 18 17 18 Blood Pressure 186/78 H 145/67 H 135/63 Pulse Oximetry 96 94 L 95 Intake & Output 10/31/18 11/01/18 11/01/18 18:59 06:59 18:59 Intake Total 1000 / 1000 Output Total 650 / 650 Balance 350 / 350 Intake: IV 1000 / 1000 D5W/Normal Saline Inj 1,000 ML 1000 / 1000 @ 42 mls/hr IV.CONT .[id number] ON LICENSE OF [facility] Rx#:[id number] Oral 0 / 0 Other 0 / 0 Output: Urine 650 / 650 Other: Date of Last Bowel Movement 10/30/18 Narrative: Vital signs stable heart rate regular Anicteric sclerae neck supple no bruit Chest lungs clear breath sounds no rales no wheezes Regular rhythm Abdomen is soft globular nontender with good bowel sounds Extremities no edema, good peripheral pulses. 10/11 Rectum-with some external hemorrhoids slightly erythematous, rectal exam was performed by ER physician.+ blood on withdrawal of palpating finger Results - Labs CBC & Chem 7: 10/31/18 10:07 10/30/18 07:20 Laboratory Results - last 24 hr 10/31/18 10:07 WBC 5.7 RBC 4.13 L Hgb 12.7 L Hct 36.9 L MCV 89.3 MCH 30.7 MCHC 34.4 RDW 14.5 Plt Count 131 L MPV 7.8 Assessment and Plan - Plan 68-year-old male presenting with 2 days rectal bleeding, history of peripheral vascular disease status post femoropopliteal bypass procedure in 2008 Lower GI bleed possible hemorrhoidal bleed rule out diverticulosis. -Hemodynamically stable. He denies any recent history of NSAIDs use. He was recently started on aspirin [place]. - Chronically on Xarelto. Plavix was discontinued Saturday by Vascular surgery - GI ff- for scope today - H and H stable - Hold Xarelto and ASA - IV PPI History of peripheral vascular disease status post sounds like a femoropopliteal surgery of the left in 2008. - Up until Saturday was on Plavix plus Xarelto. Was seen by Dr. Grove then, Plavix was discontinued and placed on aspirin. - We will hold meds for now. - unremarkable 12-lead EKG. History of hypertension. History of atrial flutter. currently in SR History of hyperlipidemia. - denies history of CAD, CVA - Continue on hydrochlorothiazide 25 mg daily, lisinopril 10 mg daily, rosuvastatin 5 mg daily. - on Xarelto - placed by Dr. Tejada- hold for now History of erectile dysfunction on Cialis 5 mg daily hold for now History of benign prostatic hypertrophy. Continue Flomax 0.4 mg at bedtime. Chemical prophylaxis hold due to GI bleed. Bilateral SCDs.- up and ambulating If stable post procedure - DC home later. PCP ffup - Dr. rodriguez ADD- scope- diverticuloses, hemorrhoids no active bleeding DC home today d/w Dr. ramírez- vascular covering for Dr. Grove- will stop Xarelto for now - hostory of fempop buypass procedure 2008 - Dr. Grove DC Plavix since patient was on Xarelot Xarelto mainly given for a fib- SR since admission- per patient just one episode of a fib - prescribed Dr. tejada - d/w them will hold this too and just stay on ASA ff up with Dr. rodriguez next week FF up with Dr. tejada innext week continu home meds- except xarelto patient and express udnerstanding- I will try to contact Terrell too over the weekend regaring this
--- NOTE | 2018-11-01 15:39 | GIPROC ---
[facility] [address] [facility]. [facility], [address] COLONOSCOPY PROCEDURE REPORT EXAM DATE: 11/01/2018 PATIENT NAME: Jairo Santos MR #: [id number] BIRTHDATE: 1950 ENDOSCOPIST: Edith Phelps MD ORDER #: [id number] DIRECTOR OF EXTENSION WORK: Angelito Damian and Steph Mcintyre STATUS: inpatient INDICATIONS: The patient is a 68 yr old male here for a colonoscopy due to hematochezia PROCEDURE PERFORMED: Colonoscopy, diagnostic MEDICATIONS: Per Anesthesia and None. PREP QUALITY: fair PREP TYPE:GoLytely ESTIMATED BLOOD LOSS: None CONSENT: The patient understands the risks and benefits of the procedure and understands that these risks include, but are not limited to: sedation, allergic reaction, infection, perforation and/or bleeding. Alternative means of evaluation and treatment include, among others: physical exam, x-rays, and/or surgical intervention. The patient elects to proceed with this endoscopic procedure. medical equipment was checked for proper function. Hand hygiene and appropriate measures for infection prevention was taken. After the risks, benefits and alternatives of the procedure were thoroughly explained, Informed consent was verified, confirmed and timeout was successfully executed by the treatment team. A digital exam revealed no abnormalities of the rectum The Pentax [id number] endoscope was introduced through the anus and advanced to the cecum, which was identified by both the appendix and ileocecal valve. The instrument was then slowly withdrawn as the colon was fully examined. COLON FINDINGS: Severe diverticulosis was noted in the sigmoid colon and descending colon. No bleeding was noted from the diverticulosis. Large internal hemorrhoids were found. Retroflexed views revealed no abnormalities The scope was then completely withdrawn from the patient and the procedure terminated. PROCEDURE WITHDRAWAL TIME:8minutes ADVERSE EVENTS: There were no complications. IMPRESSIONS: 1. Severe diverticulosis was noted in the sigmoid colon and descending colon 2. Large internal hemorrhoids 3. Retroflexed views revealed no abnormalities 4. Revealed no abnormalities of the rectum RECOMMENDATIONS: 1. No seeds, nuts and popcorn in diet 2. High fiber diet 3. Continue surveillance RECALL: Return 5 years Colonoscopy Edith Phelps MD eSigned: Edith Phelps MD 11/01/2018 3:38 PM cc: PATIENT NAME: Jairo Santos MR#: [id number]
--- NOTE | 2018-11-01 18:37 | ECG ---
Date Performed: 10/31/2018 Time Performed: 16:59:19 PTAGE: 68 years EKG: SINUS BRADYCARDIA WITH FIRST DEGREE AV BLOCK MODERATE INTRAVENTRICULAR CONDUCTION DELAY NON SPECIFIC T-WAVE ABNORMALITY ABNORMAL ECG NO PREVIOUS TRACING DOCTOR: Dennis Jones Interpretating Date/Time 11/01/2018 18:35:27
== END 2018-11-01 19:10 | disposition home or self-care (01) ==
LOC: NEPC 06:47 → NEDA 06:47 → NEPHCDU 11:24
PROVIDERS: ADMIT Internal Medicine; ATTEND Internal Medicine
PROC: COLONOS (2018-11-01 15:10)
DX: N40.0 Benign prostatic hyperplasia without lower urinary tract symptoms; Z80.0 Family history of malignant neoplasm of digestive organs; K64.8 Other hemorrhoids; Z79.899 Other long term (current) drug therapy; G47.30 Sleep apnea, unspecified; Z79.82 Long term (current) use of aspirin; I48.91 Unspecified atrial fibrillation; I48.92 Unspecified atrial flutter; F17.210 Nicotine dependence, cigarettes, uncomplicated; I74.3 Embolism and thrombosis of arteries of the lower extremities; I73.9 Peripheral vascular disease, unspecified; I10 Essential (primary) hypertension; E78.5 Hyperlipidemia, unspecified; Z95.828 Presence of other vascular implants and grafts; K57.31 Diverticulosis of large intestine without perforation or abscess with bleeding; Z79.01 Long term (current) use of anticoagulants; Z95.1 Presence of aortocoronary bypass graft; N52.9 Male erectile dysfunction, unspecified
CPT/HCPCS: 80053; 85025; 85027; 85610; 85730; 86850; 86900; 86901; 93005; 96374; 96376; 99285; C9113; G0378; J7042